=== PATIENT | male | born 1945 | race Caucasian/White ===

== ENCOUNTER 2016-12-11 09:46 | Emergency (ER) | payer MEDICARE, OTHER ==
[2016-12-11] MEDS ORDERED: ACETAMINOPHEN 325 MG TABLET PO ONE (10:16)
--- NOTE | 2016-12-11 10:20 | ER Document Report ---
HPI - HPI Patient complains to provider of: Shoulder joint pain Onset: Other - 3-1/2 weeks Onset/Duration: Persistent Quality of pain: Sharp Pain Level: 4 Context: Patient complains of right shoulder joint pain for the past 3-1/2 weeks. Patient states that 3.5 weeks ago he was taking out the trash downhill and the wheels of the trash can when out from under him causing him to fall landing on his right shoulder. Patient had pain to right shoulder joint area with raising his arm. Patient was never initially seen after injuring his shoulder. Patient states today there was ice on the floor and he slipped wet surface causing him to fall hitting his right shoulder on the counter of his kitchen. Patient is right-hand dominant. Patient denies any head injury or loss of consciousness. Patient states that today he did not fall on the floor although he just fell reinjuring his already tender shoulder. Associated Symptoms: Other - Shoulder joint pain Exacerbated by: Movement Relieved by: Remaining still Similar symptoms previously: No Recently seen / treated by doctor: No - ROS ROS below otherwise negative: Yes Systems Reviewed and Negative: Yes All other systems reviewed and negative - NEURO Neurology: DENIES: Headache - CARDIOVASCULAR Cardiovascular: DENIES: Chest pain - RESPIRATORY Respiratory: DENIES: Coughing - MUSCULOSKELETAL Musculoskeletal: REPORTS: Extremity pain - Shoulder joint - DERM Skin Color: Normal Skin Problems: None Past Medical History - General Information source: Patient - Social History Smoking Status: Never Smoker Frequency of alcohol use: Occasional Drug Abuse: None Occupation: retired Lives with: Spouse/Significant other Family History: Reviewed & Not Pertinent Patient has suicidal ideation: No Patient has homicidal ideation: No - Past Medical History Cardiac Medical History: Reports: Hx Hypercholesterolemia, Hx Hypertension Pulmonary Medical History: Reports: Hx Pneumonia - as child only Renal/ Medical History: Denies: Hx Peritoneal Dialysis GI Medical History: Musculoskeltal Medical History: Reports Hx Arthritis Traumatic Medical History: Reports: Hx Fractures - LT tib/fib, ORIF, 2006 Past Surgical History: Reports: Hx Cholecystectomy, Hx Herniorrhaphy - at age 65 years old RT inguinal, Hx Orthopedic Surgery - Right total hip replacement on , wound debridement on 03/29/2015 - Immunizations Hx Diphtheria, Pertussis, Tetanus Vaccination: Yes Vertical Provider Document - CONSTITUTIONAL Agree With Documented VS: Yes Exam Limitations: No Limitations General Appearance: WD/WN, No Apparent Distress - INFECTION CONTROL TRAVEL OUTSIDE OF THE [place] IN LAST 30 DAYS: No - HEENT HEENT: Atraumatic, Normocephalic - NECK Neck: Normal Inspection, Supple. negative: Lymphadenopathy-Left, Lymphadenopathy-Right - RESPIRATORY Respiratory: Breath Sounds Normal, No Respiratory Distress O2 Sat by Pulse Oximetry: 96 - CARDIOVASCULAR Cardiovascular: Regular Rate, Regular Rhythm, No Murmur Pulses: Normal: Radial - BACK Back: Normal Inspection - MUSCULOSKELETAL/EXTREMETIES Musculoskeletal/Extremeties: MAEW, Tender - Right shoulder joint tenderness to posterior aspect of humeral head, tenderness increases with extension or abduction of right shoulder, no dislocation or deformity., No Edema - NEURO Level of Consciousness: Awake, Alert, Appropriate Motor/Sensory: No Motor Deficit, No Sensory Deficit - DERM Integumentary: Warm, Dry, No Rash Course - Re-evaluation Re-evalutation: 12/11/16 11:06 The patient has been informed that they may have pre-hypertension or hypertension based on a blood pressure reading in the emergency department. I recommend that patient call the primary care provider listed on their discharge instructions or a physician of their choice by this week to arrange follow-up for further evaluation of possible pre-hypertension her hypertension. - Vital Signs Vital signs: Temp Pulse Resp BP Pulse Ox 97.8 F 103 H 20 141/77 H 96 12/11/16 09:49 12/11/16 09:49 12/11/16 09:49 12/11/16 09:49 12/11/16 09:49 - Diagnostic Test Radiology reviewed: Reports reviewed Procedures - Immobilization Right Shoulder Pre-Proc Neuro Vasc Exam: Normal Immobilizer type: Sling Performed by: RN Post-Proc Neuro Vasc Exam: Normal Alignment checked and good: Yes Discharge - Discharge Clinical Impression: Arthritis, Hx of essential hypertension Fall Qualifiers: Encounter type: initial encounter Qualified Code(s): W19.XXXA - Unspecified fall, initial encounter Sprain of right shoulder Qualifiers: Encounter type: initial encounter Shoulder sprain type: unspecified sprain Qualified Code(s): S43.401A - Unspecified sprain of right shoulder joint, initial encounter Condition: Stable Disposition: HOME, SELF-CARE Instructions: Shoulder Injury ([facility]), Temporary Sling ([facility]), Ice Packs ([facility]), Oral Narcotic Medication ([facility]) Additional Instructions: Return immediately for any new or worsening symptoms Followup with your primary care provider, call tomorrow to make a followup appointment Follow-up with orthopedic doctor for any continued pain or problems Going for the next 4 days and then removed. If still having pain see your orthopedic doctor for further evaluation. Your blood pressure was mildly elevated today, have your primary doctor recheck this next week. Prescriptions: Hydrocodone/Acetaminophen [[place] 5-325 Tablet] 1 each PO Q6 PRN #15 tablet PRN Reason: Forms: Elevated Blood Pressure Referrals: ALBER CARMONA MD [Primary Care Provider] - Follow up in 3-5 days MARLON ASKEW MD [ACTIVE STAFF] - Follow up as needed
--- NOTE | 2016-12-11 10:47 | RADIOLOGY REPORT (SQ) ---
EXAM DESCRIPTION: SHOULDER RIGHT 2 OR MORE VIEWS COMPLETED DATE/TIME: 12/11/2016 10:33 am REASON FOR STUDY: fall, shoulder injury COMPARISON: None. NUMBER OF VIEWS: Three views. TECHNIQUE: Internal rotation, external rotation, and Y view images acquired of the right shoulder. LIMITATIONS: None. FINDINGS: MINERALIZATION: Normal. BONES: No acute fracture or dislocation. No worrisome bone lesions. JOINTS: There is mild bony overgrowth of the acromioclavicular joint. VISUALIZED LUNGS AND RIBS: No pneumothorax. No rib fracture. SOFT TISSUES: No radiopaque foreign body. OTHER: No other significant finding. IMPRESSION: Acromioclavicular degenerative joint changes with no acute abnormality. TECHNICAL DOCUMENTATION: JOB ID: [id number] [employer]- All Rights Reserved
[2016-12-11 11:11] VITALS: BP 125/68
== END 2016-12-11 11:11 | disposition home or self-care (01) ==
LOC: ER 09:46
DX: M25.511 Pain in right shoulder (principal); M19.90 Unspecified osteoarthritis, unspecified site; E78.00 Pure hypercholesterolemia, unspecified; I10 Essential (primary) hypertension; Z90.49 Acquired absence of other specified parts of digestive tract; Z96.641 Presence of right artificial hip joint
CPT/HCPCS: 99283; 73030; A9270

== ENCOUNTER 2017-04-02 09:24 | Emergency (ER) | payer MEDICARE, OTHER ==
[2017-04-02] MEDS ORDERED: ACETAMINOPHEN 325 MG TABLET PO ONE (10:01)
[2017-04-02] MEDS ORDERED: INFLUENZA ADLT QUAD (36MOS+) 2017-18 VAC 0.5 ML SYR IM ONE (10:02)
--- NOTE | 2017-04-02 10:03 | ER Document Report ---
HPI - HPI Patient complains to provider of: Right ankle pain Onset: This morning Onset/Duration: Gradual Quality of pain: Sharp Pain Level: 4 Context: Patient states that he woke up with right ankle pain. Patient denies any injury. Patient states that he has no pain until he attempts to bear weight. Patient does report a distant history of gout. Associated Symptoms: Other - Right ankle pain. denies: Fever Exacerbated by: Standing, Movement, Walking Relieved by: Denies Similar symptoms previously: No Recently seen / treated by doctor: No - ROS ROS below otherwise negative: Yes Systems Reviewed and Negative: Yes All other systems reviewed and negative - CONSTITUTIONAL Constitutional: DENIES: Fever - NEURO Neurology: DENIES: Weakness - MUSCULOSKELETAL Musculoskeletal: REPORTS: Extremity pain, Swelling - DERM Skin Color: Normal Skin Problems: None Past Medical History - General Information source: Patient - Social History Smoking Status: Never Smoker Chew tobacco use (# tins/day): No Frequency of alcohol use: Occasional Drug Abuse: None Family History: Reviewed & Not Pertinent Patient has suicidal ideation: No Patient has homicidal ideation: No - Past Medical History Cardiac Medical History: Reports: Hx Hypercholesterolemia, Hx Hypertension Pulmonary Medical History: Reports: Hx Pneumonia - as child only Renal/ Medical History: Denies: Hx Peritoneal Dialysis GI Medical History: Musculoskeltal Medical History: Reports Hx Arthritis, Reports Hx Gout Traumatic Medical History: Reports: Hx Fractures - LT tib/fib, ORIF, 2006 Past Surgical History: Reports: Hx Cholecystectomy, Hx Herniorrhaphy - at age 65 years old RT inguinal, Hx Orthopedic Surgery - Right total hip replacement on , wound debridement on 03/29/2015 - Immunizations Hx Diphtheria, Pertussis, Tetanus Vaccination: Yes Vertical Provider Document - CONSTITUTIONAL Agree With Documented VS: Yes Exam Limitations: No Limitations General Appearance: WD/WN, No Apparent Distress - INFECTION CONTROL TRAVEL OUTSIDE OF THE [place] IN LAST 30 DAYS: No - HEENT HEENT: Atraumatic, Normocephalic - NECK Neck: Normal Inspection - RESPIRATORY Respiratory: No Respiratory Distress O2 Sat by Pulse Oximetry: 94 - CARDIOVASCULAR Pulses: Normal: Dorsalis pedis - MUSCULOSKELETAL/EXTREMETIES Musculoskeletal/Extremeties: MAEW, FROM, Tender - Right ankle tenderness over lateral malleolar area with 1+ edema, normal skin color overlying joint, no concern for septic joint - NEURO Level of Consciousness: Awake, Alert, Appropriate Motor/Sensory: No Motor Deficit - DERM Integumentary: Warm, Dry, No Rash Course - Re-evaluation Re-evalutation: 04/02/17 11:[address] Freedman regarding patient's x-ray and concern about possible subcutaneous foreign body to foot. Recommends obtaining a lateral view of the foot 04/02/17 Patient with what appears to be a subcutaneous foreign body to right foot. Patient denies any known history of injury or retained foreign object. Patient advised of x-ray finding and advised to follow-up with orthopedic doctor. Patient's location of tenderness does not coincide with location of subcutaneous foreign body. No overlying erythema or swelling overlying site of subcutaneous foreign body - Vital Signs Vital signs: Temp Pulse Resp BP Pulse Ox 98 F 112 H 18 126/96 H 94 04/02/17 09:28 04/02/17 09:28 04/02/17 09:28 04/02/17 09:28 04/02/17 09:28 - Diagnostic Test Radiology reviewed: Image reviewed, Reports reviewed Discharge - Discharge Clinical Impression: Foreign body in subcutaneous tissue Right ankle pain Qualifiers: Chronicity: acute Qualified Code(s): M25.571 - Pain in right ankle and joints of right foot Gout Qualifiers: Gout site: ankle Gout etiology: unspecified cause Chronicity: acute Laterality : right Qualified Code(s): M10.9 - Gout, unspecified Condition: Stable Disposition: HOME, SELF-CARE Instructions: Gout ([facility]), Gout Diet ([facility]), Steroid Medication, Ultram ([facility]) Additional Instructions: Return immediately for any new or worsening symptoms Followup with your primary care provider, call tomorrow to make a followup appointment Prescriptions: Prednisone [Deltasone 20 mg Tablet] 2 tab PO DAILY 5 Days tablet Tramadol HCl [Ultram 50 mg Tablet] 50 mg PO ASDIR PRN #20 tablet PRN Reason: Referrals: XAVIER CARMONA MD [Primary Care Provider] - Follow up as needed [facility] [Provider Group] - Follow up in 3-5 days
--- NOTE | 2017-04-02 11:17 | RADIOLOGY REPORT (SQ) ---
EXAM DESCRIPTION: ANKLE RIGHT COMPLETE COMPLETED DATE/TIME: 04/02/2017 10:42 am REASON FOR STUDY: r lat ankle pain COMPARISON: None. NUMBER OF VIEWS: Three views. TECHNIQUE: AP, lateral, and oblique radiographic images acquired of the right ankle. LIMITATIONS: None. FINDINGS: MINERALIZATION: Normal. BONES: No acute fracture or dislocation. No worrisome bone lesions. JOINTS: No effusions. SOFT TISSUES: Soft tissue swelling. OTHER: No other significant finding. IMPRESSION: Soft tissue swelling. No acute fracture. TECHNICAL DOCUMENTATION: JOB ID: [id number] [employer]- All Rights Reserved
--- NOTE | 2017-04-02 12:00 | RADIOLOGY REPORT (SQ) ---
EXAM DESCRIPTION: FOOT RIGHT 2 VIEWS COMPLETED DATE/TIME: 04/02/2017 11:46 am REASON FOR STUDY: lateral view of foot, ?FB COMPARISON: None. NUMBER OF VIEWS: Three views. TECHNIQUE: AP, lateral and oblique radiographic images acquired of the right foot. LIMITATIONS: None. FINDINGS: MINERALIZATION: Normal. BONES: No acute fracture or dislocation. No worrisome bone lesions. JOINTS: No effusions. SOFT TISSUES: There appears to be a very thin needle in the dorsal soft tissues overlying the neck of the 4th metatarsal. OTHER: No other significant finding. IMPRESSION: Dorsal foreign body. TECHNICAL DOCUMENTATION: JOB ID: [id number] [employer]- All Rights Reserved
[2017-04-02 12:07] VITALS: BP 142/99
== END 2017-04-02 12:07 | disposition home or self-care (01) ==
LOC: ER 09:24
DX: S91.341A Puncture wound with foreign body, right foot, initial encounter (principal); M10.9 Gout, unspecified; M25.571 Pain in right ankle and joints of right foot; X58.XXXA Exposure to other specified factors, initial encounter
CPT/HCPCS: 99283; 73610; 73620; 90686; G0008; A9270; 90471

== ENCOUNTER 2018-08-14 08:25 | Emergency (ER) | payer MEDICARE, OTHER ==
[2018-08-14 10:18] VITALS: BP 155/69
--- NOTE | 2018-08-14 10:18 | ER Document Report ---
ED General - General Chief Complaint: Low Back Pain Stated Complaint: LEG PAIN Time Seen by Provider: 08/14/18 09:04 Primary Care Provider: XAVIER CARMONA MD [Primary Care Provider] - Follow up in 3-5 days TRAVEL OUTSIDE OF THE [place] IN LAST 30 DAYS: No - HPI Patient complains to provider of: Calf pain Notes: Patient coming in for evaluation of calf pain. Patient complains of Pain exacerbated by sitting for prolonged periods of time and also ambulating. Patient denies any trauma to his legs. Patient does have a history of diabetes does take aspirin does take cholesterol medications. Patient states he did recently go to his PCP was started on Celebrex for his pain. Patient states compliant with his medication with no resolution of his symptoms. Patient denies any fever chills nausea vomiting diarrhea. Patient does report approximately 3 weeks ago an episode of going up and down stairs which causes legs to get very weak. Patient does states his feet do feel cold intermittently throughout the day. Patient states symptoms ongoing since May - Related Data Allergies/Adverse Reactions: No Known Allergies Allergy (Verified 08/14/18 08:25) Past Medical History - Social History Smoking Status: Never Smoker Family History: Reviewed & Not Pertinent Patient has suicidal ideation: No Patient has homicidal ideation: No - Past Medical History Cardiac Medical History: Reports: Hx Hypercholesterolemia, Hx Hypertension Pulmonary Medical History: Reports: Hx Pneumonia - as child only Renal/ Medical History: Denies: Hx Peritoneal Dialysis GI Medical History: Musculoskeletal Medical History: Reports Hx Arthritis, Reports Hx Gout Traumatic Medical History: Reports: Hx Fractures - LT tib/fib, ORIF, 2005 Past Surgical History: Reports: Hx Cholecystectomy, Hx Herniorrhaphy - at age 65 years old RT inguinal, Hx Orthopedic Surgery - Right total hip replacement on 02/25/2015, wound debridement on 03/29/2015 - Immunizations Hx Diphtheria, Pertussis, Tetanus Vaccination: Yes Review of Systems - Review of Systems Constitutional: No symptoms reported EENT: No symptoms reported Cardiovascular: No symptoms reported Respiratory: No symptoms reported Gastrointestinal: No symptoms reported Genitourinary: No symptoms reported Male Genitourinary: No symptoms reported Musculoskeletal: Other - Pain Skin: No symptoms reported Hematologic/Lymphatic: No symptoms reported Neurological/Psychological: No symptoms reported -: Yes All other systems reviewed and negative Physical Exam - Vital signs Vitals: Temp Pulse Resp BP Pulse Ox 98.3 F 101 H 18 175/83 H 100 08/14/18 08:32 08/14/18 08:32 08/14/18 08:32 08/14/18 08:32 08/14/18 08:32 Interpretation: Normal - General General appearance: Appears well, Alert - HEENT Head: Normocephalic, Atraumatic Eyes: Normal Pupils: PERRL - Respiratory Respiratory status: No respiratory distress Chest status: Nontender Breath sounds: Normal Chest palpation: Normal - Cardiovascular Rhythm: Regular Heart sounds: Normal auscultation Murmur: No - Abdominal Inspection: Normal Distension: No distension Bowel sounds: Normal Tenderness: Nontender Organomegaly: No organomegaly - Back Back: Normal, Nontender - Extremities General upper extremity: Normal inspection, Nontender, Normal color, Normal ROM, Normal temperature General lower extremity: Normal inspection, Nontender, Normal color, Normal ROM, Normal temperature, Normal weight bearing, Other - capillary refill is approximately 3-4 seconds bilateral greater toes. Palpable dorsalis pedis bilaterally ultrasound does show bilateral dorsalis pedis blood flow. No: Gwyn's sign - Neurological Neuro grossly intact: Yes Cognition: Normal Orientation: AAOx4 [place] Coma Scale Eye Opening: Spontaneous [place] Coma Scale Verbal: Oriented [place] Coma Scale Motor: Obeys Commands [place] Coma Scale Total: 15 Speech: Normal Motor strength normal: LUE, RUE, LLE, RLE Sensory: Normal - Psychological Associated symptoms: Normal affect, Normal mood - Skin Skin Temperature: Warm Skin Moisture: Dry Skin Color: Normal Course - Re-evaluation Re-evalutation: 08/14/18 16:09 Patient's HPI and physical examination is concerning for possible PVD. The explained to the patient that recommend start taking a baby aspirin to go ahead and take 2 baby aspirin a day but explained to the patient that I would highly recommend follow-up with his primary care physician for further evaluation and possibly an arterial duplex to be performed. Patient states understanding otherwise patient does have pulses distally no signs of any acute ischemia patient will be discharged to follow-up PCP - Vital Signs Vital signs: Temp Pulse Resp BP Pulse Ox 98.3 F 96 16 155/69 H 99 08/14/18 08:32 08/14/18 10:17 08/14/18 10:17 08/14/18 10:17 08/14/18 10:17 Discharge - Discharge Clinical Impression: Bilateral leg pain Condition: Good Disposition: HOME, SELF-CARE Instructions: Peripheral Vascular Disease ([facility]) Additional Instructions: Your evaluation today is very consistent with the onset of peripheral vascular disease. Your evaluation here in ER does show blood flow pulses Into your bilaterally. I would recommend 2 baby aspirins a day. I recommend taking Tylenol as directed on the bottle for your pain I do believe that she has peripheral vascular disease. I recommend that you follow-up with your primary care physician in the next 3-5 days I do believe that you any further testing done such as a arterial duplex. Your primary care physician can order this test to follow-up with the results with you. Referrals: XAVIER CARMONA MD [Primary Care Provider] - Follow up in 3-5 days
== END 2018-08-14 10:23 | disposition home or self-care (01) ==
LOC: ER 08:25
DX: M79.604 Pain in right leg (principal); M79.605 Pain in left leg; M54.5 Low back pain; E11.9 Type 2 diabetes mellitus without complications; R53.1 Weakness; I10 Essential (primary) hypertension
CPT/HCPCS: 99283

== ENCOUNTER 2019-03-29 13:34 | Emergency (ER) | payer MEDICARE, OTHER ==
--- NOTE | 2019-03-29 13:59 | ER Document Report ---
ED Medical Screen (RME) - General Chief Complaint: Foot Pain Stated Complaint: LEFT FOOT SWELLING Time Seen by Provider: 03/29/19 13:43 Primary Care Provider: XAVIER CARMONA MD [Primary Care Provider] - Follow up as needed Mode of Arrival: Ambulatory Information source: Patient Notes: This 74-year-old patient presents to the emergency department with complaints of left foot swollen with pain. Reports on March [address] to [place] and back his left foot started swelling he had pain to the area. He also reports through the week it got better. Then he recently went to [place] and came back and his foot swelled up again and became painful. He did contact his primary care provider via the phone and they sent in a prescription for colchicine saying he may be having a gout flareup. He reports he had gout 2 years ago. Denies other symptoms such as fever vomiting diarrhea. Denies history of cardiac disease. Left foot swollen pitting edema noted with good pedal pulse and cap refill I have greeted and performed a rapid initial assessment of this patient. A comprehensive ED assessment and evaluation of the patient, analysis of test results and completion of the medical decision making process will be conducted by additional ED providers. Dictation of this chart was performed using voice recognition software; therefore, there may be some unintended grammatical errors. TRAVEL OUTSIDE OF THE [place] IN LAST 30 DAYS: No - Related Data Allergies/Adverse Reactions: No Known Allergies Allergy (Verified 01/30/19 08:12) Past Medical History - Social History Chew tobacco use (# tins/day): No Frequency of alcohol use: None Drug Abuse: None - Past Medical History Cardiac Medical History: Reports: Hx Hypercholesterolemia, Hx Hypertension Pulmonary Medical History: Reports: Hx Pneumonia - as child only Renal/ Medical History: Denies: Hx Peritoneal Dialysis GI Medical History: Musculoskeltal Medical History: Reports Hx Arthritis, Reports Hx Gout Traumatic Medical History: Reports: Hx Fractures - LT tib/fib, ORIF, 2006 Past Surgical History: Reports: Hx Cholecystectomy, Hx Herniorrhaphy - at age 65 years old RT inguinal, Hx Orthopedic Surgery - Right total hip replacement on 02/25/2015, wound debridement on 03/29/2015 - Immunizations Hx Diphtheria, Pertussis, Tetanus Vaccination: Yes Physical Exam - Vital signs Vitals: Temp Pulse Resp BP Pulse Ox 98.1 F 95 16 173/95 H 95 10/02/19 13:42 03/29/19 13:42 03/29/19 13:42 03/29/19 13:42 03/29/19 13:42 Course - Vital Signs Vital signs: Temp Pulse Resp BP Pulse Ox 98.1 F 95 16 173/95 H 95 03/29/19 13:42 03/29/19 13:42 03/29/19 13:42 03/29/19 13:42 03/29/19 13:42 Doctor's Discharge - Discharge Referrals: XAVIER CARMONA MD [Primary Care Provider] - Follow up as needed
[2019-03-29 14:24] LABS: ABSOLUTE BASOPHILS # (AUTO) 0.1 10^3/uL (0.0-0.2); ABSOLUTE EOSINOPHILS # (AUTO) 0.2 10^3/uL (0.0-0.6); ABSOLUTE MONOCYTES (AUTO) 0.6 10^3/uL (0.1-1.4); ABSOLUTE NEUT (AUTO) 4.3 10^3/uL (1.7-8.2); BASOPHILS % (AUTO) 0.9 % (0-2); EOSINOPHILS % (AUTO) 2.5 % (0-6); HEMATOCRIT 39.2 % (37.9-51.0); HEMOGLOBIN 13.2 g/dL (13.5-17.0); LYMPHOCYTES % (AUTO) 28.1 % (13-45); MEAN CORPUSCULAR HGB CONC 33.8 g/dL (32.0-36.0); MEAN CORPUSCULAR VOLUME 92 fl (80-97); PLATELET COUNT 338 10^3/uL (150-450); RED BLOOD COUNT 4.26 10^6/uL (4.35-5.55); RED CELL DISTRIBUTION WIDTH 13.1 % (11.5-14.0); SEGMENTED NEUTROPHILS % (AUTO) 60.5 % (42-78); TOTAL CELLS COUNTED % (AUTO) 100 %; WHITE BLOOD COUNT 7.1 10^3/uL (4.0-10.5)
--- NOTE | 2019-03-29 14:26 | ER Document Report ---
ED Extremity Problem, Lower - General Chief Complaint: Foot Pain Stated Complaint: LEFT FOOT SWELLING Time Seen by Provider: 03/29/19 13:43 Primary Care Provider: XAVIER CARMONA MD [Primary Care Provider] - Follow up as needed Mode of Arrival: Ambulatory Notes: Patient is a 74-year-old male presents to the emergency department with a chief complaint of left foot swelling. Patient reports he was driving back from [place] completing a [address] on March 19 when he noticed some foot swelling and redness on the left side. Patient reports it initially got a little bit better. Patient reports he did drive to [place] over the weekend and on Wednesday the swelling and pain to his toes returned. Patient denies fever. Patient reports the last time he had a pain like this he was diagnosed with gout. He reports he did call his primary care physician who called him in a prescription for colchicine. Patient reports he has been on this for 2 days and it is not helping. Patient reports that most of the pain is located in his toes. Patient reports when he elevates his feet this completely takes away the pain and decreases the swelling. Patient reports he noticed that the pain is worse at night when he is laying flat on his bed and stretching out. Patient denies a history of blood clot. Patient denies calf pain, chest pain or shortness of breath. Patient reports he is not a diabetic. TRAVEL OUTSIDE OF THE [place] IN LAST 30 DAYS: No - Related Data Allergies/Adverse Reactions: No Known Allergies Allergy (Verified 01/30/19 08:12) Past Medical History - General Information source: Patient - Social History Smoking Status: Never Smoker Chew tobacco use (# tins/day): No Frequency of alcohol use: None Drug Abuse: None Lives with: Family Family History: Reviewed & Not Pertinent Patient has suicidal ideation: No Patient has homicidal ideation: No - Past Medical History Cardiac Medical History: Reports: Hx Hypercholesterolemia, Hx Hypertension Pulmonary Medical History: Reports: Hx Pneumonia - as child only EENT Medical History: Reports: None Neurological Medical History: Reports: None Endocrine Medical History: Reports: None Renal/ Medical History: Reports: None. Denies: Hx Peritoneal Dialysis Malignancy Medical History: Reports None GI Medical History: Reports: None Musculoskeletal Medical History: Reports Hx Arthritis, Reports Hx Gout Skin Medical History: Reports None Psychiatric Medical History: Reports: None Traumatic Medical History: Reports: Hx Fractures - LT tib/fib, ORIF, 2006 Infectious Medical History: Reports: None Past Surgical History: Reports: Hx Cholecystectomy, Hx Herniorrhaphy - at age 65 years old RT inguinal, Hx Orthopedic Surgery - Right total hip replacement on 02/25/2015, wound debridement on 03/29/2015 - Immunizations Hx Diphtheria, Pertussis, Tetanus Vaccination: Yes Review of Systems - Review of Systems Constitutional: No symptoms reported EENT: No symptoms reported Cardiovascular: No symptoms reported Respiratory: No symptoms reported Gastrointestinal: No symptoms reported Genitourinary: No symptoms reported Male Genitourinary: No symptoms reported Musculoskeletal: No symptoms reported Skin: See HPI Hematologic/Lymphatic: No symptoms reported Neurological/Psychological: No symptoms reported Physical Exam - Vital signs Vitals: Temp Pulse Resp BP Pulse Ox 98.1 F 95 16 173/95 H 95 03/29/19 13:42 03/29/19 13:42 03/29/19 13:42 03/29/19 13:42 03/29/19 13:42 Interpretation: Hypertensive - Notes Notes: GENERAL: Well-appearing, well-nourished and in no acute distress. HEAD: Atraumatic, normocephalic. EYES: Pupils equal round and reactive to light, extraocular movements intact, sclera anicteric, conjunctiva are normal. ENT: Nares patent, oropharynx clear without exudates. Moist mucous membranes. NECK: Normal range of motion, supple without lymphadenopathy or JVD. LUNGS: Breath sounds clear to auscultation bilaterally and equal. No wheezes rales or rhonchi. HEART: Regular rate and rhythm without murmurs, rubs or gallops. ABDOMEN: Soft, nontender, normoactive bowel sounds. No guarding, no rebound. No masses appreciated. BACK: No cervical, thoracic, lumbar midline tenderness. No saddle anesthesia, normal distal neurovascular exam. GENITOURINARY: Deferred. EXTREMITIES: Normal range of motion, + 1 pitting edema noted to the left foot from ankle down. Poor foot care present. Scattered crusting of skin, mild erythema, healing sore to the dorsal aspect of the 4th toe (no active bleeding - pt. reports he stubbed his toe), + 2 dorsalis pedis pulse. NEUROLOGICAL: Cranial nerves II through XII grossly intact. Normal speech, normal gait. PSYCH: Normal mood, normal affect. SKIN: Warm, Dry, normal turgor, no rashes or lesions noted. Course - Vital Signs Vital signs: Temp Pulse Resp BP Pulse Ox 98.1 F 95 16 173/95 H 95 03/29/19 13:42 03/29/19 13:42 03/29/19 13:42 03/29/19 13:42 03/29/19 13:42 - Laboratory Result Diagrams: 03/29/19 14:14 03/29/19 14:14 Laboratory results interpreted by me: 03/29/19 03/29/19 14:14 14:14 RBC 4.26 L Hgb 13.2 L Alkaline Phosphatase 159 H Laboratory 03/29/19 03/29/19 14:14 14:14 WBC 7.1 RBC 4.26 L Hgb 13.2 L Hct 39.2 MCV 92 MCH 31.0 MCHC 33.8 RDW 13.1 Plt Count 338 Lymph % (Auto) 28.1 [place] % (Auto) 8.0 Eos % (Auto) 2.5 Baso % (Auto) 0.9 Absolute Neuts (auto) 4.3 Absolute Lymphs (auto) 2.0 Absolute Monos (auto) 0.6 Absolute Eos (auto) 0.2 Absolute Basos (auto) 0.1 Seg Neutrophils % 60.5 Sodium 138.4 Potassium 4.2 Chloride 100 Carbon Dioxide 29 Anion Gap 9 BUN 14 Creatinine 0.74 Est GFR ( Amer) > 60 Est GFR (MDRD) Non-Af > 60 Glucose 94 Uric Acid 6.2 Calcium 10.1 Total Bilirubin 0.6 Direct Bilirubin 0.2 Neonat Total Bilirubin Not Reportable Neonat Direct Bilirubin Not Reportable Neonat Indirect Bili Not Reportable AST 52 ALT 45 Alkaline Phosphatase 159 H Total Protein 7.4 Albumin 4.5 Patient's blood work does not show a leukocytosis, anemia, alteration of electrolytes or liver function. Patient does have a normal uric acid of 6.2. - Diagnostic Test Radiology reviewed: Reports reviewed Radiology results interpreted by me: 03/29/19 15:02 Venous Doppler Study 03/29/19 13:57 IMPRESSION: NO EVIDENCE OF DVT OR SVT IN THE LEFT LEG. Discharge - Discharge Clinical Impression: Swelling of left foot Condition: Stable Disposition: HOME, SELF-CARE Additional Instructions: Today you are seen in the emergency department for left foot pain and swelling. Your lab work was unremarkable and your uric acid was normal. We did obtain a Doppler of your left lower extremity to rule out blood clot. This was also negative. It did show adequate blood flow to the leg. I am unsure what is c ausing the swelling to the left foot. At this time there does not appear to be a surrounding cellulitis or indication for an oral antibiotic. I would continue taking the colchicine as this could be helping with your discomfort. Follow-up with your primary care physician and return if the symptoms worsen such as increased swelling, redness, fever, discoloration of the foot or any new or worsening symptoms. Over the next few days I would elevate the left foot as you have reported this helps with the discomfort and completely takes away the pain. Referrals: XAVIER CARMONA MD [Primary Care Provider] - Follow up as needed
[2019-03-29 14:43] LABS: ALBUMIN 4.5 g/dL (3.5-5.0); ALKALINE PHOSPHATASE 159 U/L (38-126); ANION GAP 9 (5-19); ASPARTATE AMINO TRANSFERASE 52 U/L (17-59); BILIRUBIN,DIRECT 0.2 mg/dL (0.0-0.4); BILIRUBIN,TOTAL 0.6 mg/dL (0.2-1.3); BLOOD UREA NITROGEN 14 mg/dL (7-20); CALCIUM 10.1 mg/dL (8.4-10.2); CARBON DIOXIDE 29 mmol/L (22-30); CHLORIDE 100 mmol/L (98-107); GLUCOSE 94 mg/dL (75-110); POTASSIUM 4.2 mmol/L (3.6-5.0); TOTAL PROTEIN 7.4 g/dL (6.3-8.2); URIC ACID 6.2 mg/dL (3.5-8.5)
--- NOTE | 2019-03-29 14:55 | RADIOLOGY REPORT (SQ) ---
EXAM DESCRIPTION: VENOUS UNILATERAL LOWER COMPLETED DATE/TIME: 03/29/2019 2:47 pm REASON FOR STUDY: pain swelling left LL and Foot COMPARISON: None. TECHNIQUE: Dynamic and static cordova scale and color images acquired of the left leg venous system. Se lected spectral images acquired with additional compression and augmentation maneuvers. The contralat eral common femoral vein and saphenofemoral junction were also imaged. Images stored on PACS. LIMITATIONS: None. FINDINGS: COMMON FEMORAL: Normal phasicity, compression and augmentation. No visualized echogenic ma terial on cordova scale. No defects on color images. FEMORAL: Normal compression and augmentation. No visualized echogenic material on cordova scale. No defe cts on color images. POPLITEAL: Normal compression, augmentation. No visualized echogenic material on cordova scale. No defec ts on color images. CALF VESSELS: Normal compression, augmentation. No visualized echogenic material on cordova scale. No de fects on color images. GSV and SSV: Normal compression, augmentation. No visualized echogenic material on cordova scale. No def ects on color images. ANY DEEP VENOUS INSUFFICIENCY: Not evaluated. ANY EVIDENCE OF POPLITEAL CYST: No. OTHER: No other significant finding. CONTRALATERAL COMMON FEMORAL VEIN AND SAPHENOFEMORAL JUNCTION: Normal phasicity, compression and augmentation. No visualized echogenic material on cordova scale. No de fects on color images. IMPRESSION: NO EVIDENCE OF DVT OR SVT IN THE LEFT LEG. TECHNICAL DOCUMENTATION: JOB ID: [id number] [employer]- All Rights Reserved Reading location - IP/workstation name: [email or web address]
[2019-03-29 15:52] VITALS: BP 125/69
== END 2019-03-29 15:52 | disposition home or self-care (01) ==
LOC: ER 13:34
DX: M79.89 Other specified soft tissue disorders (principal); R60.0 Localized edema; L53.9 Erythematous condition, unspecified; L98.9 Disorder of the skin and subcutaneous tissue, unspecified; I10 Essential (primary) hypertension
CPT/HCPCS: 36415; 80053; 84550; 85025; 93971; 99284

== ENCOUNTER 2019-08-04 08:51 | Emergency (ER) | payer MEDICARE, OTHER ==
--- NOTE | 2019-08-04 09:43 | ER Document Report ---
HPI - HPI Time Seen by Provider: 08/04/19 09:28 Pain Level: Denies Notes: Patient is a 74-year-old male with a history of hypercholesterolemia and hypertension who presents complaining of having some nasal congestion without discharge and a dry cough over the past 4 days. Patient states that he does feel a little bit wheezy at nighttime. He otherwise is feeling well. He has been able to eat and drink without difficulty. He is urinating normally and having normal bowel movements. Denies drug allergies. No history of CAD, diabetes, CHF, PE, DVT. He is able to ambulate without any dyspnea on exertion. Denies any headache, fever, neck pain, sore throat, chest pain, palpitations, syncope, shortness of breath, dyspnea, abdominal pain, nausea/vomiting/diarrhea, urinary retention, dysuria, hematuria, back pain, or rash. - ROS Systems Reviewed and Negative: Yes All other systems reviewed and negative - RESPIRATORY Respiratory: REPORTS: Coughing - REPRODUCTIVE Reproductive: DENIES: : Past Medical History - Social History Smoking Status: Never Smoker Chew tobacco use (# tins/day): No Frequency of alcohol use: None Drug Abuse: None Family History: Reviewed & Not Pertinent Patient has suicidal ideation: No Patient has homicidal ideation: No - Past Medical History Cardiac Medical History: Reports: Hx Hypercholesterolemia, Hx Hypertension Pulmonary Medical History: Reports: Hx Pneumonia - as child only Renal/ Medical History: Denies: Hx Peritoneal Dialysis GI Medical History: Musculoskeletal Medical History: Reports Hx Arthritis, Reports Hx Gout Traumatic Medical History: Reports: Hx Fractures - LT tib/fib, ORIF, 2006 Past Surgical History: Reports: Hx Cholecystectomy, Hx Herniorrhaphy - at age 65 years old RT inguinal, Hx Orthopedic Surgery - Right total hip replacement on 02/25/2015, wound debridement on 03/29/2015 - Immunizations Hx Diphtheria, Pertussis, Tetanus Vaccination: Yes Vertical Provider Document - CONSTITUTIONAL Agree With Documented VS: Yes Notes: PHYSICAL EXAMINATION: GENERAL: Well-appearing, well-nourished and in no acute distress. A&Ox4. Answers questions appropriately. Moves comfortably w/o notable distress HEAD: Atraumatic, normocephalic. EYES: Pupils equal round and reactive to light, extraocular movements intact, sclera anicteric, conjunctiva are normal. ENT: Nares patent and without discharge. oropharynx no erythema without exudates. No tonsilar hypertrophy without erythema or exudate. No palatine shift. Uvula midline. No tongue protrusion. No drooling, hoarseness, or airway compromise. Moist mucous membranes. No sinus tenderness. NECK: Normal range of motion, supple without lymphadenopathy. No rigidity/meningismus. LUNGS: Breath sounds clear to auscultation bilaterally and equal. No wheezes rales or rhonchi. No retractions HEART: Regular rate and rhythm without murmurs, rubs, gallops. ABDOMEN: Soft, nontender, nondistended abdomen. No guarding, no rebound. Normal bowel sounds present. No CVA tenderness bilaterally. Ext: No edema. Gwyn neg b/l. NEUROLOGICAL: Normal speech, normal gait. PSYCH: Normal mood, normal affect. SKIN: Warm, Dry, normal turgor, no rashes or lesions noted. - INFECTION CONTROL TRAVEL OUTSIDE OF THE [place] IN LAST 30 DAYS: No Course - Re-evaluation Re-evalutation: 08/04/19 10:21 Patient is an afebrile, well-hydrated, 74-year-old male who presents to the emergency department with suspected left basilar pneumonia. Vitals are acceptable without significant tachycardia, tachypnea, or hypoxia. PE is otherwise unremarkable. See CXR. He is nontoxic-appearing and is tolerating p.o. without difficulty. Lungs are grossly clear to auscultation bilaterally. No further labs or imaging warranted at this time. Low suspicion for any meningitis, sepsis, peritonsillar/pharyngeal abscess, respiratory compromise, or other emergent systemic condition at this time. Patient is aware this condition can change from initial presentation and he needs to monitor symptoms closely. Rx for levaquin. Conservative measures otherwise for symptoms. Recheck with your PCM in 2-3 days. Return to the ED with any worsening/concerning symptoms otherwise as reviewed in discharge. Patient is in agreement. - Vital Signs Vital signs: Temp Pulse Resp BP Pulse Ox 97.6 F 80 20 148/70 H 99 08/04/19 08:57 08/04/19 08:57 08/04/19 08:57 08/04/19 08:57 08/04/19 09:35 Discharge - Discharge Clinical Impression: Left lower lobe pneumonia Qualifiers: Pneumonia type: due to unspecified organism Qualified Code(s): J18.9 - Pneumonia, unspecified organism Condition: Stable Disposition: HOME, SELF-CARE Additional Instructions: Maintain adequate fluid intake tylenol/ibuprofen as needed alternating every 3 hours for fever/body ache over the counter cold medication as needed for symptoms Humidified air may help Wash your hands regularly Wear a mask when coughing F/u: with your PCM in 2-3 days for a recheck Return to the ED with any fever, altered mental status/behavior, chest pain, palpitations, syncope, headache, neck pain/stiffness, shortness of breath, chest pains, wheezing, drooling, trouble swallowing/breathing, abdominal pain, n/v/d, rash, or worsening/concerning symptoms otherwise. Prescriptions: Levofloxacin [Levaquin 750 mg Tablet] 750 mg PO DAILY #5 tablet Albuterol Sulfate [Proair HFA Inhalation Aerosol 8.5 gm MDI] 2 puff IH Q4H PRN #1 mdi PRN Reason: Forms: Elevated Blood Pressure Referrals: XAVIER CARMONA MD [Primary Care Provider] - Follow up as needed
--- NOTE | 2019-08-04 10:16 | RADIOLOGY REPORT (SQ) ---
EXAM DESCRIPTION: CHEST 2 VIEWS COMPLETED DATE/TIME: 08/04/2019 9:54 am REASON FOR STUDY: cough COMPARISON: 04/08/2015 EXAM PARAMETERS: NUMBER OF VIEWS: two views TECHNIQUE: Digital Frontal and Lateral radiographic views of the chest acquired. RADIATION DOSE: NA LIMITATIONS: none FINDINGS: LUNGS AND PLEURA: Mild linear left basilar opacity. No pleural effusion or pneumothorax. MEDIASTINUM AND HILAR STRUCTURES: No masses or contour abnormalities. HEART AND VASCULAR STRUCTURES: Heart normal size. No evidence for failure. BONES: No acute findings. HARDWARE: Cholecystectomy clips. OTHER: No other significant finding. IMPRESSION: Mild linear left basilar opacities possibly atelectasis/ scarring or infection. TECHNICAL DOCUMENTATION: JOB ID: [id number] [employer]- All Rights Reserved Reading location - IP/workstation name: [email or web address]
[2019-08-04 10:33] VITALS: BP 132/89
== END 2019-08-04 10:30 | disposition home or self-care (01) ==
LOC: ER 08:51
DX: J18.9 Pneumonia, unspecified organism (principal); R09.81 Nasal congestion; E78.00 Pure hypercholesterolemia, unspecified; I10 Essential (primary) hypertension; Z90.49 Acquired absence of other specified parts of digestive tract; Z96.641 Presence of right artificial hip joint
CPT/HCPCS: 71046; 99283

== ENCOUNTER 2019-09-11 16:04 | Emergency (ER) | payer MEDICARE, OTHER ==
[2019-09-11] MEDS ORDERED: NORMAL SALINE 500 ML IV ONE (17:39)
[2019-09-11 17:45] LABS: ABSOLUTE BASOPHILS # (AUTO) 0.1 10^3/uL (0.0-0.2); ABSOLUTE EOSINOPHILS # (AUTO) 0.1 10^3/uL (0.0-0.6); ABSOLUTE LYMPHOCYTES (AUTO) 1.7 10^3/uL (0.5-4.7); ABSOLUTE MONOCYTES (AUTO) 0.7 10^3/uL (0.1-1.4); ABSOLUTE NEUT (AUTO) 7.3 10^3/uL (1.7-8.2); BASOPHILS % (AUTO) 0.6 % (0-2); EOSINOPHILS % (AUTO) 1.4 % (0-6); HEMATOCRIT 38.5 % (37.9-51.0); HEMOGLOBIN 13.2 g/dL (13.5-17.0); LYMPHOCYTES % (AUTO) 17.3 % (13-45); MEAN CORPUSCULAR HEMOGLOBIN 31.4 pg (27.0-33.4); MEAN CORPUSCULAR HGB CONC 34.1 g/dL (32.0-36.0); MEAN CORPUSCULAR VOLUME 92 fl (80-97); MONOCYTES % (AUTO) 6.7 % (3-13); PLATELET COUNT 312 10^3/uL (150-450); RED BLOOD COUNT 4.19 10^6/uL (4.35-5.55); RED CELL DISTRIBUTION WIDTH 12.3 % (11.5-14.0); TOTAL CELLS COUNTED % (AUTO) 100 %; WHITE BLOOD COUNT 9.9 10^3/uL (4.0-10.5)
--- NOTE | 2019-09-11 17:45 | ER Document Report ---
Entered by SKYLER ARREAGA SCRIBE 09/11/19 [id number] Acting as scribe for:KATHLEEN BUCKLEY DO ED General - General Chief Complaint: Dizziness Stated Complaint: LIGHTED HEADED Time Seen by Provider: 09/11/19 17:03 Primary Care Provider: XAVIER CARMONA MD [Primary Care Provider] - Follow up as needed Information source: Patient Notes: This 74-year-old male presents with son to the emergency department complaining of dizziness spells for the past 1-2 months. Patient states that he had a spell today and his son checked his blood pressure. Patient reports that his blood pressure was 70/40 and his heart rate was 120 at that time. Patient mentions that he is unsure but thinks he had a loss of consciousness on his drive home from [place] today. Son states that it is not normal for patient to fall asleep at the wheel or lose consciousness while driving. Patient explains that he feels a "hot feeling on top of head" that lasts for 1-2 seconds and goes away. Patient states that he has had a CT work up for this symptom previously. TRAVEL OUTSIDE OF THE [place] IN LAST 30 DAYS: No - Related Data Allergies/Adverse Reactions: No Known Allergies Allergy (Verified 09/11/19 17:15) Past Medical History - General Information source: Patient - Social History Smoking Status: Never Smoker Cigarette use (# per day): No Chew tobacco use (# tins/day): No Family History: Reviewed & Not Pertinent - Past Medical History Cardiac Medical History: Reports: Hx Hypercholesterolemia, Hx Hypertension Pulmonary Medical History: Reports: Hx Pneumonia GI Medical History: Musculoskeletal Medical History: Reports Hx Arthritis, Reports Hx Gout Traumatic Medical History: Reports: Hx Fractures - LT tib/fib, ORIF, 2006 Past Surgical History: Reports: Hx Cholecystectomy, Hx Herniorrhaphy - at age 65 years old RT inguinal, Hx Orthopedic Surgery - Right total hip replacement on 02/25/2015, wound debridement on 03/29/2015 - Immunizations Hx Diphtheria, Pertussis, Tetanus Vaccination: Yes Review of Systems - Review of Systems Constitutional: No symptoms reported EENT: No symptoms reported Cardiovascular: See HPI, Dizziness, Lightheaded Respiratory: No symptoms reported Gastrointestinal: No symptoms reported Genitourinary: No symptoms reported Male Genitourinary: No symptoms reported Musculoskeletal: No symptoms reported Skin: No symptoms reported Hematologic/Lymphatic: No symptoms reported Neurological/Psychological: See HPI, Lost consciousness -: Yes All other systems reviewed and negative Physical Exam - Vital signs Vitals: Resp 23 H 09/11/19 16:28 - Notes Notes: Physical Exam: General: Alert, appears well. HEENT: Normocephalic. Atraumatic. PERRL. Extraocular movements intact. Oropharynx clear. Neck: Supple. Non-tender. Respiratory: No respiratory distress. Clear and equal breath sounds bilaterally. Cardiovascular: Mildly tachycardic. Abdominal: Non-tender. No distension. Normal Bowel Sounds. Obese. Back: No gross abnormalities. Extremities: Moves all four extremities. Upper extremities: Normal inspection. Normal ROM. Lower extremities: Normal inspection. No edema. Normal ROM. Neurological: Normal cognition. AAOx4. Normal speech. Psychological: Normal affect. Normal Mood. Skin: Warm. Dry. Normal color. Course - Vital Signs Vital signs: Temp Pulse Resp BP Pulse Ox 93 20 126/80 H 95 09/11/19 18:51 09/11/19 17:01 09/11/19 18:51 09/11/19 17:01 - Laboratory Result Diagrams: 09/11/19 17:10 09/11/19 17:10 Laboratory results interpreted by me: 09/11/19 09/11/19 09/11/19 17:10 17:10 18:45 RBC 4.19 L Hgb 13.2 L Carbon Dioxide 31 H BUN 27 H Creatinine 1.37 H Est GFR (MDRD) Non-Af 51 L Glucose 112 H Alkaline Phosphatase 135 H Creatine Kinase 175 H Urine Protein 100 H Urine Blood SMALL H Discharge - Discharge Clinical Impression: Acute kidney injury, Near syncope Hypertension Qualifiers: Hypertension type: unspecified Qualified Code(s): I10 - Essential (primary) hypertension Condition: Good Disposition: HOME, SELF-CARE Instructions: Dehydration ([facility]), Dizziness ([facility]), Weakness ([facility]) Additional Instructions: Call the tow operator in the morning for follow up. Your kidney function was off just a bit, this should be rechecked by your family doctor. Please return here for chest pain, shortness of breath or other problems or concerns. Referrals: XAVIER CARMONA MD [Primary Care Provider] - Follow up as needed I personally performed the services described in the documentation, reviewed and edited the documentation which was dictated to the scribe in my presence, and it accurately records my words and actions.
[2019-09-11 17:51] LABS: ALKALINE PHOSPHATASE 135 U/L (38-126); ANION GAP 9 (5-19); ASPARTATE AMINO TRANSFERASE 39 U/L (17-59); BILIRUBIN,DIRECT 0.3 mg/dL (0.0-0.4); BILIRUBIN,TOTAL 0.3 mg/dL (0.2-1.3); BLOOD UREA NITROGEN 27 mg/dL (7-20); CALCIUM 9.6 mg/dL (8.4-10.2); CARBON DIOXIDE 31 mmol/L (22-30); CHLORIDE 99 mmol/L (98-107); CREATINE KINASE 175 U/L (55-170); GLUCOSE 112 mg/dL (75-110); TOTAL PROTEIN 7.2 g/dL (6.3-8.2)
--- NOTE | 2019-09-11 18:18 | RADIOLOGY REPORT (SQ) ---
EXAM DESCRIPTION: CHEST SINGLE VIEW COMPLETED DATE/TIME: 09/11/2019 6:02 pm REASON FOR STUDY: htn COMPARISON: 08/04/2019 EXAM PARAMETERS: NUMBER OF VIEWS: One view. TECHNIQUE: Single frontal radiographic view of the chest acquired. RADIATION DOSE: NA LIMITATIONS: None. FINDINGS: LUNGS AND PLEURA: Mild subsegmental atelectasis in the left base. MEDIASTINUM AND HILAR STRUCTURES: No masses. Contour normal. HEART AND VASCULAR STRUCTURES: Heart normal in size. Normal vasculature. BONES: No acute findings. HARDWARE: None in the chest. OTHER: No other significant finding. IMPRESSION: NO ACUTE RADIOGRAPHIC FINDING IN THE CHEST. TECHNICAL DOCUMENTATION: JOB ID: [id number] [employer]- All Rights Reserved Reading location - IP/workstation name: [email or web address]
[2019-09-11 19:21] LABS: APPEARANCE,URINE SLIGHTLY-CLOUDY; BILIRUBIN,URINE NEGATIVE (NEGATIVE); COLOR,URINE YELLOW; GLUCOSE, URINE NEGATIVE (NEGATIVE); KETONES,URINE NEGATIVE (NEGATIVE); LEUKOCYTE ESTERASE,URINE NEGATIVE (NEGATIVE); NITRITE,URINE NEGATIVE (NEGATIVE); PROTEIN,URINE 100 mg/dL (NEGATIVE); URINE SPECIFIC GRAVITY 1.015; UROBILINOGEN,URINE NEGATIVE mg/dL (<2.0)
[2019-09-11 21:28] VITALS: BP 141/82
--- NOTE | 2019-09-11 21:47 | EKG REPORT ---
SEVERITY:- ABNORMAL ECG - SINUS TACHYCARDIA LVH WITH SECONDARY REPOLARIZATION ABNORMALITY CONSIDER ANTERIOR INFARCT : Confirmed by: Cheri Bush MD 11-Sep-2019 21:46:58
== END 2019-09-11 21:26 | disposition home or self-care (01) ==
LOC: ER 16:04
DX: N17.9 Acute kidney failure, unspecified (principal); R42 Dizziness and giddiness; I10 Essential (primary) hypertension
CPT/HCPCS: 93005; 99284; 96360; 96361; 36415; 82550; 83735; 85025; 80053; 81001; 84484; 71045; 93010; J7040

== ENCOUNTER 2019-11-27 08:01 | Emergency (ER) | payer MEDICARE, OTHER ==
--- NOTE | 2019-11-27 08:45 | ER Document Report ---
ED Extremity Problem, Lower - General Chief Complaint: Foot Pain Stated Complaint: LEG PAIN Time Seen by Provider: 11/27/19 08:20 Primary Care Provider: XAVIER CARMONA MD [Primary Care Provider] - Follow up as needed Mode of Arrival: Ambulatory Information source: Patient Notes: 74-year-old male past medical history significant for gout, hypertension, hyperlipidemia presents to the emergency room complaining of left ankle erythema, swelling, and pain for the past 3 days. States approximately 1 week ago he cut the ball of his foot while walking in the yard. But did not notice the redness and swelling until 3 days ago. He denies any fevers. States he has a history of gout tried taking colchicine yesterday without relief. Also took Motrin last night without relief. Previous fracture with hardware in the left ankle. Denies any use of blood thinners. TRAVEL OUTSIDE OF THE [place] IN LAST 30 DAYS: No - Related Data Allergies/Adverse Reactions: No Known Allergies Allergy (Verified 09/11/19 17:15) Home Medications: Atorvastatin, Metoprolol, HCTZ, Losartan, Proair, Colchicine Past Medical History - General Information source: Patient - Social History Smoking Status: Never Smoker Frequency of alcohol use: Occasional Drug Abuse: None Lives with: Family Family History: Reviewed & Not Pertinent Patient has homicidal ideation: No - Past Medical History Cardiac Medical History: Reports: Hx Hypercholesterolemia, Hx Hypertension Pulmonary Medical History: Reports: Hx Pneumonia Renal/ Medical History: Denies: Hx Peritoneal Dialysis GI Medical History: Musculoskeletal Medical History: Reports Hx Arthritis, Reports Hx Gout Traumatic Medical History: Reports: Hx Fractures - LT tib/fib, ORIF, 2005 Past Surgical History: Reports: Hx Cholecystectomy, Hx Herniorrhaphy - at age 65 years old RT inguinal, Hx Orthopedic Surgery - Right total hip replacement on 02/25/2015, wound debridement on 03/29/2015 - Immunizations Hx Diphtheria, Pertussis, Tetanus Vaccination: Yes Review of Systems - Review of Systems Constitutional: No symptoms reported Cardiovascular: No symptoms reported Respiratory: No symptoms reported Musculoskeletal: Joint pain Skin: Other - Erythema, swelling Neurological/Psychological: No symptoms reported -: Yes All other systems reviewed and negative Physical Exam - Vital signs Vitals: Temp Pulse Resp BP Pulse Ox 98.5 F 91 16 126/67 H 98 11/27/19 08:07 11/27/19 08:07 11/27/19 08:07 11/27/19 08:07 11/27/19 08:07 - General General appearance: Appears well, Alert In distress: Mild - Respiratory Respiratory status: No respiratory distress Chest status: Nontender Breath sounds: Normal Chest palpation: Normal - Cardiovascular Rhythm: Regular Murmur: No Systolic murmur grade 1-6: 2 Friction rub: No Gallop: None auscultated Normal capillary refill: Yes - Extremities General upper extremity: Normal inspection General lower extremity: Tender - Left lower extremity from mid calf to mid left foot with erythema, warm and tender to palpation. There is no active discharge or draining noted. Ankle: Tender, Other - Left medial malleolus with erythema, swelling, warm and tender to palpation. No active discharge or draining noted.. No: Limited ROM, Unable to bear weight Foot: Abrasion - There are 2 well-healing abrasions noted to the ball of the left foot. There is no erythema, not tender or warm to touch. No discharge or draining noted. - Neurological Neuro grossly intact: Yes Cognition: Normal Orientation: AAOx4 Lueders Coma Scale Eye Opening: Spontaneous Jo-Ann Coma Scale Verbal: Oriented Jo-Ann Coma Scale Motor: Obeys Commands Jo-Ann Coma Scale Total: 15 Speech: Normal Motor strength normal: LUE, RUE, LLE, RLE Sensory: Normal Notes: Positive left pedal pulse. Capillary refill less than 3 seconds. - Skin Skin Temperature: Warm Skin Moisture: Dry Skin Color: Erythema Skin irregularity: Erythema Location of irregularity: Extremities Notes: Left lower extremity from mid calf to mid dorsal of left foot with erythema, warm and tender to palpation. There is swelling and erythema over the left medial malleolus. Full range of motion without difficulty. Course - Re-evaluation Re-evalutation: 11/27/19 10:47 Patient is afebrile, nontoxic-appearing, decreased pain. Reviewed lab and x-ray results with patient. Marked left lower leg area of cellulitis. Patient was counseled to rest, ice, elevate his left leg as much as possible. Take antibiotics as prescribed. Can take Tylenol as needed for pain. Follow-up with primary care physician for recheck in 2 days. Patient was given strict return to the emergency room guidelines. Return for any new or worsening symptoms. All questions were answered. Patient verbalized understanding and agrees with plan of care. 11/27/19 10:50 - Vital Signs Vital signs: Temp Pulse Resp BP Pulse Ox 98.5 F 91 16 126/67 H 98 11/27/19 08:26 11/27/19 08:07 11/27/19 08:07 11/27/19 08:07 11/27/19 08:07 - Laboratory Result Diagrams: 11/27/19 09:00 11/27/19 09:00 Laboratory results interpreted by me: 11/27/19 11/27/19 09:00 09:00 WBC 10.6 H RBC 4.02 L Hgb 12.7 L Hct 36.7 L ESR 62 H Sodium 134.2 L Chloride 96 L Carbon Dioxide 31 H Alkaline Phosphatase 147 H C-Reactive Protein 34.1 H - Diagnostic Test Radiology reviewed: Reports reviewed Discharge - Discharge Clinical Impression: Left leg cellulitis Condition: Stable Disposition: HOME, SELF-CARE Instructions: Cellulitis ([facility]) Additional Instructions: Rest ice elevate left leg. Antibiotics as prescribed. Tylenol and/or Motrin as needed for pain. Recheck with your primary care physician in 2 days. Return if increasing cellulitis beyond the goddard that were placed in your leg today in the next 2 days. Prescriptions: Cephalexin Monohydrate [Keflex 500 mg Capsule] 500 mg PO Q8H 10 Days #30 capsule Referrals: XAVIER CARMONA MD [Primary Care Provider] - Follow up as needed
[2019-11-27] MEDS ORDERED: CEFTRIAXONE INJ 1000 MG VIAL IV ONE (08:53)
[2019-11-27] MEDS ORDERED: KETOROLAC TROMETHAMINE INJ/PF 30 MG/1 ML SDV IV ONE (08:53)
--- NOTE | 2019-11-27 09:28 | RADIOLOGY REPORT (SQ) ---
EXAM DESCRIPTION: ANKLE LEFT COMPLETE IMAGES COMPLETED DATE/TIME: 11/27/2019 9:08 am REASON FOR STUDY: pain/swelling COMPARISON: None. NUMBER OF VIEWS: Three views. TECHNIQUE: AP, lateral, and oblique radiographic images acquired of the left ankle. LIMITATIONS: None. FINDINGS: MINERALIZATION: Osteopenia. BONES: The corticated osseous fragment that projects inferior to the medial malleolus could represent the sequela of a chronic injury. There is a distal fibular plate and screws endplate; the hardware is intact. There is no periprosthetic fracture. JOINTS: No joint effusion. The Achilles tendon silhouette is intact. SOFT TISSUES: Mild diffuse soft tissue swelling. OTHER: Enthesophytes at the calcaneal insertion of the plantar fascia. IMPRESSION: 1. Mild diffuse soft tissue swelling without an associated acute osseous abnormality of the ankle. 2. The corticated osseous fragment that projects inferior to the medial malleolus could represent th e sequela of a chronic injury. 3. ORIF hardware in the distal fibula. TECHNICAL DOCUMENTATION: JOB ID: [id number] 2010 [employer]- All Rights Reserved Reading location - IP/workstation name: [email or web address]
[2019-11-27 09:38] LABS: ALKALINE PHOSPHATASE 147 U/L (38-126); ANION GAP 7 (5-19); ASPARTATE AMINO TRANSFERASE 36 U/L (17-59); BILIRUBIN,TOTAL 0.8 mg/dL (0.2-1.3); BLOOD UREA NITROGEN 20 mg/dL (7-20); C-REACTIVE PROTEIN 34.1 mg/L (<10.0); CALCIUM 9.3 mg/dL (8.4-10.2); CARBON DIOXIDE 31 mmol/L (22-30); CHLORIDE 96 mmol/L (98-107); GLUCOSE 98 mg/dL (75-110); POTASSIUM 4.6 mmol/L (3.6-5.0); TOTAL PROTEIN 7.2 g/dL (6.3-8.2)
[2019-11-27 09:56] LABS: ERYTHROCYTE SEDIMENTATION RATE 62 mm/hr (0-20)
[2019-11-27 10:11] LABS: ABSOLUTE BASOPHILS # (AUTO) 0.1 10^3/uL (0.0-0.2); ABSOLUTE EOSINOPHILS # (AUTO) 0.1 10^3/uL (0.0-0.6); ABSOLUTE NEUT (AUTO) 7.4 10^3/uL (1.7-8.2); BASOPHILS % (AUTO) 0.8 % (0-2); EOSINOPHILS % (AUTO) 0.9 % (0-6); HEMATOCRIT 36.7 % (37.9-51.0); HEMOGLOBIN 12.7 g/dL (13.5-17.0); LYMPHOCYTES % (AUTO) 18.8 % (13-45); MEAN CORPUSCULAR HEMOGLOBIN 31.6 pg (27.0-33.4); MEAN CORPUSCULAR HGB CONC 34.7 g/dL (32.0-36.0); MEAN CORPUSCULAR VOLUME 91 fl (80-97); MONOCYTES % (AUTO) 9.2 % (3-13); PLATELET COUNT 297 10^3/uL (150-450); RED BLOOD COUNT 4.02 10^6/uL (4.35-5.55); RED CELL DISTRIBUTION WIDTH 12.8 % (11.5-14.0); SEGMENTED NEUTROPHILS % (AUTO) 70.3 % (42-78); TOTAL CELLS COUNTED % (AUTO) 100 %; WHITE BLOOD COUNT 10.6 10^3/uL (4.0-10.5)
[2019-11-27 11:28] VITALS: BP 115/73
== END 2019-11-27 11:42 | disposition home or self-care (01) ==
LOC: ER 08:01
DX: L03.116 Cellulitis of left lower limb (principal); S90.812A Abrasion, left foot, initial encounter; W45.8XXA Other foreign body or object entering through skin, initial encounter; I10 Essential (primary) hypertension; E78.00 Pure hypercholesterolemia, unspecified; M10.9 Gout, unspecified; Z79.899 Other long term (current) drug therapy
CPT/HCPCS: 99283; 96375; 96365; 36415; 87040; 83605; 85025; 85652; 86140; 80053; 73610; J1885; J0696

== ENCOUNTER 2019-11-28 12:54 | Emergency (ER) | payer MEDICARE, OTHER ==
[2019-11-28] MEDS ORDERED: HYDROCODONE/ACETAMINOPHEN 5-325 MG TABLET PO ONE (13:09)
--- NOTE | 2019-11-28 13:12 | ER Document Report ---
ED Medical Screen (RME) - General Chief Complaint: Ankle Pain Stated Complaint: ANKLE PAIN Time Seen by Provider: 11/28/19 13:02 Primary Care Provider: XAVIER CARMONA MD [Primary Care Provider] - Follow up as needed Mode of Arrival: Wheelchair Information source: Patient Notes: HPI; 74-year-old male past medical history significant for gout, hypertension, hyperlipidemia presents to the emergency room with worsening pain and erythema to left lower extremity. Patient was seen here yesterday for cellulitis was discharged home on Keflex which he states is been taking. Also taking ibuprofen which he states is not helping with his pain. Able to get follow-up appointment with his primary until next week. PE: Alert and oriented x3, moderate distress noted, left lower leg erythematous, warm, tender to palpation from the mid calf to the left ankle. Unable to fully assess foot while in triage. Lungs: Clear to auscultation without rales rhonchi wheezes, heart: Tachycardic without murmurs rubs or gallops. I have greeted and performed a rapid initial assessment of this patient. A comprehensive ED assessment and evaluation of the patient, analysis of test r esults and completion of the medical decision making process will be conducted by additional ED providers. I have specifically instructed the patient or family members with the patient to immediately return to any nursing staff should anything change in the patient's condition or with their chief complaint. TRAVEL OUTSIDE OF THE [place] IN LAST 30 DAYS: No - Related Data Allergies/Adverse Reactions: No Known Allergies Allergy (Verified 09/11/19 17:15) Past Medical History - Past Medical History Cardiac Medical History: Reports: Hx Hypercholesterolemia, Hx Hypertension Pulmonary Medical History: Reports: Hx Pneumonia Renal/ Medical History: Denies: Hx Peritoneal Dialysis GI Medical History: Musculoskeltal Medical History: Reports Hx Arthritis, Reports Hx Gout Traumatic Medical History: Reports: Hx Fractures - LT tib/fib, ORIF, 2006 Past Surgical History: Reports: Hx Cholecystectomy, Hx Herniorrhaphy - at age 65 years old RT inguinal, Hx Orthopedic Surgery - Right total hip replacement on 02/25/2015, wound debridement on 03/29/2015 - Immunizations Hx Diphtheria, Pertussis, Tetanus Vaccination: Yes Physical Exam - Vital signs Vitals: Temp Pulse Resp BP Pulse Ox 98.4 F 104 H 20 114/67 95 11/28/19 13:00 11/28/19 13:00 11/28/19 13:00 11/28/19 13:00 11/28/19 13:00 Course - Vital Signs Vital signs: Temp Pulse Resp BP Pulse Ox 98.4 F 104 H 20 114/67 95 11/28/19 13:00 11/28/19 13:00 11/28/19 13:00 11/28/19 13:00 11/28/19 13:00 Doctor's Discharge - Discharge Referrals: XAVIER CARMONA MD [Primary Care Provider] - Follow up as needed
[2019-11-28 13:31] LABS: ABSOLUTE BASOPHILS # (AUTO) 0.1 10^3/uL (0.0-0.2); ABSOLUTE EOSINOPHILS # (AUTO) 0.1 10^3/uL (0.0-0.6); ABSOLUTE LYMPHOCYTES (AUTO) 2.4 10^3/uL (0.5-4.7); ABSOLUTE MONOCYTES (AUTO) 1.2 10^3/uL (0.1-1.4); BASOPHILS % (AUTO) 0.9 % (0-2); EOSINOPHILS % (AUTO) 0.7 % (0-6); HEMATOCRIT 37.5 % (37.9-51.0); HEMOGLOBIN 12.7 g/dL (13.5-17.0); LYMPHOCYTES % (AUTO) 20.7 % (13-45); MEAN CORPUSCULAR HEMOGLOBIN 31.1 pg (27.0-33.4); MEAN CORPUSCULAR HGB CONC 33.9 g/dL (32.0-36.0); MEAN CORPUSCULAR VOLUME 92 fl (80-97); PLATELET COUNT 290 10^3/uL (150-450); RED BLOOD COUNT 4.09 10^6/uL (4.35-5.55); RED CELL DISTRIBUTION WIDTH 12.9 % (11.5-14.0); SEGMENTED NEUTROPHILS % (AUTO) 67.7 % (42-78); TOTAL CELLS COUNTED % (AUTO) 100 %; WHITE BLOOD COUNT 11.8 10^3/uL (4.0-10.5)
[2019-11-28] MEDS ORDERED: CEFEPIME 1 GM/D5W RTU 1 GM/50 ML RTUPB IV ONE (13:39)
[2019-11-28] MEDS ORDERED: VANCOMYCIN HCL INJ 1000 MG VIAL IV ONE (13:39)
--- NOTE | 2019-11-28 13:40 | ER Document Report ---
ED General - General Chief Complaint: Swelling of Lower Extremity Stated Complaint: ANKLE PAIN Time Seen by Provider: 11/28/19 13:02 Primary Care Provider: WILLIAMS FOSTER MD [NO LOCAL MD] - Follow up in 1 week XAVIER CARMONA MD [Primary Care Provider] - Follow up tomorrow Mode of Arrival: Wheelchair TRAVEL OUTSIDE OF THE [place] IN LAST 30 DAYS: No - HPI Notes: 74-year-old male presents to the emergency room with lower leg swelling and pain after being diagnosed with cellulitis yesterday and started on Keflex as well as having intermittent left testicular/ inguinal pain that started 3 days ago. Patient had a x-ray of his ankle which was negative yesterday for any osteomyelitis or fracture. He has had 4 doses of 500 mg Keflex. States that the redness has extended outside of the marked area and his pain is become worse, 3 out of 5. Patient is able to bear partial weight. Denies any other area of injury. Denies history of MRSA. Denies any trauma to the scrotum. Denies any dysuria, urinary retention, discharge his penis. Patient states he does not have a history of inguinal hernias. Denies fevers, chills, chest pain,palpitations, shortness of breath, dyspnea, nausea, vomiting, diarrhea, abdominal pain, hematuria,blurred vision, double vision, loss of vision, speech changes, LH, dizziness, syncope, headaches, wheezing, ST, URI, neck pain, weakness, bowel or bladder dysfunction, saddle anesthesia, numbness or tingling in bilateral upper or lower extremities equally, muscle paralysis, weakness in bilateral upper or lower extremities equally or rash. - Related Data Allergies/Adverse Reactions: No Known Allergies Allergy (Verified 09/11/19 17:15) Past Medical History - General Information source: Patient - Social History Smoking Status: Never Smoker Frequency of alcohol use: Occasional Drug Abuse: None Family History: Reviewed & Not Pertinent Patient has homicidal ideation: No - Past Medical History Cardiac Medical History: Reports: Hx Hypercholesterolemia, Hx Hypertension Pulmonary Medical History: Reports: Hx Pneumonia Renal/ Medical History: Denies: Hx Peritoneal Dialysis GI Medical History: Musculoskeletal Medical History: Reports Hx Arthritis, Reports Hx Gout Traumatic Medical History: Reports: Hx Fractures - LT tib/fib, ORIF, 2005 Past Surgical History: Reports: Hx Cholecystectomy, Hx Herniorrhaphy - at age 65 years old RT inguinal, Hx Orthopedic Surgery - Right total hip replacement on , wound debridement on 03/29/2015 - Immunizations Hx Diphtheria, Pertussis, Tetanus Vaccination: Yes Review of Systems - Review of Systems Constitutional: No symptoms reported EENT: No symptoms reported Cardiovascular: No symptoms reported Respiratory: No symptoms reported Gastrointestinal: No symptoms reported Genitourinary: See HPI Male Genitourinary: No symptoms reported Musculoskeletal: No symptoms reported Skin: See HPI Hematologic/Lymphatic: No symptoms reported Neurological/Psychological: No symptoms reported Physical Exam - Vital signs Vitals: Temp Pulse Resp BP Pulse Ox 98.4 F 104 H 20 114/67 95 11/28/19 13:00 11/28/19 13:00 11/28/19 13:00 11/28/19 13:11/28/19 13:00 - Notes Notes: MEDICATIONS: I agree with the patient medications as charted by the RN. ALLERGIES: I agree with the allergies as charted by the RN. PAST MEDICAL HISTORY/PAST SURGICAL HISTORY: Reviewed and agree as charted by RN. SOCIAL HISTORY: Reviewed and agree as charted by RN. FAMILY HISTORY: No significant familial comorbid conditions directly related to patient complaint EXAM: Reviewed vital signs as charted by RN. PHYSICAL EXAMINATION:reviewed vital signs by RN GENERAL: Well-appearing, well-nourished and in no acute distress. HEAD: Atraumatic, normocephalic. EYES: Pupils equal round and reactive to light, extraocular movements intact, sclera anicteric, conjunctiva are normal. ENT: Nares patent, oropharynx clear without exudates. Moist mucous membranes. NECK: Normal range of motion, supple without lymphadenopathy LUNGS: Breath sounds clear to auscultation bilaterally and equal. No wheezes rales or rhonchi. HEART: Regular rate and rhythm without murmurs ABDOMEN: Soft, nontender, nondistended abdomen. No guarding, no rebound. No masses appreciated. Musculoskeletal: Normal range of motion, no pitting or edema. No cyanosis. NEUROLOGICAL: Cranial nerves grossly intact. Normal speech, normal gait. Normal sensory, motor exams PSYCH: Normal mood, normal affect. SKIN: Warm, Dry, normal turgor, no rashes or lesions noted. Noted erythema induration warmth to touch from left lateral malleolus to mid calf on anterior aspect. no open wounds or drainage. Negative Homans sign bilaterally. squeeze test negative bilaterally. dtr +2 BLE. Limited APROM. distal pulses + 2 BLE equally. Full motor and sensory function of bilateral lower extremities. No vascular compromise. Peroneal nerve is intact with strong eversion and plantar flexion. Negative anterior drawer test. muscle strength 5/5 in BLE equally. Course - Re-evaluation Re-evalutation: 11/28/19 16:45 Afebrile vital stable no distress. Nurses notes reviewed. CBC shows a very slight elevation in 11.8 from 10.6, CMP negative for hepatic renal dysfunction. Electrolytes normal. Ultrasound of left lower extremity negative for DVT. Left testicular ultrasound shows left epididymitis and varicocele. Urinalysis was normal. Patient given IV vancomycin and cefepime for cellulitis of left lower extremity has become progressively worse since starting outpatient Keflex therapy yesterday which he is only received 4 doses at 500 mg orally. Patient is nondiabetic. Has not tried any heat or icing. Patient states the pain became worse and this is what brought him in, pain is been managed with morphine 3 mg IVP. Since patient is technically a return from being seen yesterday and his cellulitis is becoming worse, I considered admission. 1644-Dr. Carbajal is at bedside to examine patient and to speak with patient who is adamantly refus ing admission. Patient was thoroughly educated about the benefits of obtaining IV antibiotic therapy from being admitted but patient states he does not want to be admitted. Considering patient is not a diabetic, has only 1.2 elevation in his leukocytes, ultrasound was negative for DVT, he was given IV antibiotic therapy today and another antibiotic adjunct therapy will be prescribed outpatient for him to take, thorough outpatient discharge instructions of when to return such as worsening redness, redness extending out of the marked area by 1 cm, worsening pain, fevers etc. reasons to return to the emergency room immediately. Also discussed with patient that he needs to elevate his scrotum due to having epididymitis, the antibiotic prescribed will help treat his epididymitis. Advised to follow-up with urologist and primary care provider for further evaluation within the next 24 to 48 hours. After performing a Medical Screening Examination, I estimate there is LOW risk for OPEN FRACTURE, COMPARTMENT SYNDROME, TENDON RUPTURE, ACUTE NEUROVASCULAR INJURY, or RETAINED FOREIGN BODY, thus I consider the discharge disposition reasonable. Also, there is no evidence or peritonitis, sepsis, or toxicity. I have reevaluated this patient multiple times and no significant life threatening changes are noted. The patient and I have discussed the diagnosis and risks, and we agree with discharging home with close follow-up with the understanding that symptoms and presentations can change. We also discussed returning to the Emergency Department immediately if new or worsening symptoms occur. We have discussed the symptoms which are most concerning (e.g., changing or worsening pain, fever, numbness, weakness, cool or painful digits) that necessitate immediate return. - Vital Signs Vital signs: Temp Pulse Resp BP Pulse Ox 98.6 F 96 18 111/73 96 11/28/19 17:27 11/28/19 17:27 11/28/19 17:27 11/28/19 17:27 11/28/19 17:27 - Laboratory Result Diagrams: 11/28/19 13:16 11/28/19 13:16 Laboratory results interpreted by me: 11/28/19 11/28/19 13:16 13:16 WBC 11.8 H RBC 4.09 L Hgb 12.7 L Hct 37.5 L Sodium 134.6 L Carbon Dioxide 31 H BUN 24 H Alkaline Phosphatase 152 H Discharge - Discharge Clinical Impression: Left leg cellulitis, Left epididymitis Condition: Stable Disposition: HOME, SELF-CARE Instructions: Cellulitis ([facility]), Epididymitis ([facility]), MRSA Cellulitis ([facility]), Trimethoprim-Sulfa ([facility]), Warm Packs ([facility]) Additional Instructions: Your scrotal ultrasound did show that you have epididymitis on the left. We will be adding an antibiotic to your regimen, this antibiotic will also cover for epididymitis as well as for cellulitis. Please apply warm compresses to site 20 minutes on 20 minutes off, keep elevated. You need to take the antibiotics as prescribed. Do not stop even if the rash goes away until you have completed all the antibiotics. The area of redness was traced out here in the emergency department with a marking pen. You need to return to emergency department if the redness spreads outside of this area by more than 2 cm in any direction. You should also return if you develop fevers with temperature great er than 101, persistent vomiting, worsening pain, or have any other symptoms that are concerning to you. Return immediately for any new or worsening symptoms. Follow up with primary care provider, call tomorrow to make followup appointment. Prescriptions: Sulfamethoxazole/Trimethoprim [Bactrim Ds Tablet] 1 each PO BID #20 tablet Referrals: WILLIAMS FOSTER MD [NO LOCAL MD] - Follow up in 1 week XAVIER CARMONA MD [Primary Care Provider] - Follow up tomorrow
[2019-11-28 13:53] LABS: ALKALINE PHOSPHATASE 152 U/L (38-126); ANION GAP 6 (5-19); ASPARTATE AMINO TRANSFERASE 30 U/L (17-59); BILIRUBIN,TOTAL 0.7 mg/dL (0.2-1.3); BLOOD UREA NITROGEN 24 mg/dL (7-20); CALCIUM 9.4 mg/dL (8.4-10.2); CARBON DIOXIDE 31 mmol/L (22-30); CHLORIDE 98 mmol/L (98-107); GLUCOSE 105 mg/dL (75-110); POTASSIUM 4.1 mmol/L (3.6-5.0); TOTAL PROTEIN 7.1 g/dL (6.3-8.2)
--- NOTE | 2019-11-28 16:00 | RADIOLOGY REPORT (SQ) ---
EXAM DESCRIPTION: U/S SCROTUM W/DOPPLER IMAGES COMPLETED DATE/TIME: 11/28/2019 3:28 pm REASON FOR STUDY: L inguinal pain COMPARISON: None. TECHNIQUE: Static and realtime cordova scale imaging of the scrotum and testes. Selected color Doppler and spectral images recorded to document blood flow. LIMITATIONS: None. FINDINGS: RIGHT: TESTICLE: Normal size, 4.2 x 3.6 x 3 cm. Normal echotexture. Normal blood flow. No mass. EPIDIDYMIS: Normal. HYDROCELE OR VARICOCELE: No. HERNIA OR EXTRA-TESTICULAR MASS: No. OTHER: No other significant finding. LEFT: TESTICLE: Normal size, 4.5 x 2.7 x 2.1 cm. Normal echotexture. Normal blood flow. No mass. EPIDIDYMIS: Epididymal tail is prominent. HYDROCELE OR VARICOCELE: There appears to be a 3 mm varicocele. HERNIA OR EXTRA-TESTICULAR MASS: No. OTHER: No other significant finding. IMPRESSION: Cannot exclude epididymitis on the left. Small left varicocele. TECHNICAL DOCUMENTATION: JOB ID: [id number] [employer]- All Rights Reserved Reading location - IP/workstation name: [email or web address]
--- NOTE | 2019-11-28 16:20 | RADIOLOGY REPORT (SQ) ---
EXAM DESCRIPTION: VENOUS UNILATERAL LOWER IMAGES COMPLETED DATE/TIME: 11/28/2019 4:08 pm REASON FOR STUDY: pain left leg, swelling and erythema COMPARISON: 03/29/2019. TECHNIQUE: Dynamic and static cordova scale and color images acquired of the left leg venous system. Se lected spectral images acquired with additional compression and augmentation maneuvers. The contralat eral common femoral vein and saphenofemoral junction were also imaged. Images stored on PACS. LIMITATIONS: None. FINDINGS: COMMON FEMORAL: Normal phasicity, compression and augmentation. No visualized echogenic ma terial on cordova scale. No defects on color images. FEMORAL: Normal compression and augmentation. No visualized echogenic material on cordova scale. No defe cts on color images. POPLITEAL: Normal compression, augmentation. No visualized echogenic material on cordova scale. No defec ts on color images. CALF VESSELS: Normal compression, augmentation. No visualized echogenic material on cordova scale. No de fects on color images. GSV and SSV: Normal compression, augmentation. No visualized echogenic material on cordova scale. No def ects on color images. ANY DEEP VENOUS INSUFFICIENCY: Not evaluated. ANY EVIDENCE OF POPLITEAL CYST: No. OTHER: No other significant finding. CONTRALATERAL COMMON FEMORAL VEIN AND SAPHENOFEMORAL JUNCTION: Normal phasicity, compression and augmentation. No visualized echogenic material on cordova scale. No de fects on color images. IMPRESSION: NO EVIDENCE DVT OR SVT IN THE LEFT LEG. TECHNICAL DOCUMENTATION: JOB ID: [id number] 2010 [employer]- All Rights Reserved Reading location - IP/workstation name: [email or web address]
[2019-11-28] MEDS ORDERED: HYDROCODONE/ACETAMINOPHEN 5-325 MG (6 TAB/ER DISP) PO PRN (16:45)
[2019-11-28] MEDS ORDERED: MORPHINE SULFATE 10 MG/ML INJ IV ONE (16:46)
[2019-11-28 17:27] VITALS: BP 111/73
[2019-11-28 17:33] LABS: APPEARANCE,URINE CLEAR; BILIRUBIN,URINE NEGATIVE (NEGATIVE); COLOR,URINE YELLOW; GLUCOSE, URINE NEGATIVE (NEGATIVE); KETONES,URINE NEGATIVE (NEGATIVE); LEUKOCYTE ESTERASE,URINE NEGATIVE (NEGATIVE); NITRITE,URINE NEGATIVE (NEGATIVE); PROTEIN,URINE NEGATIVE (NEGATIVE); URINE SPECIFIC GRAVITY 1.013; UROBILINOGEN,URINE NEGATIVE mg/dL (<2.0)
== END 2019-11-28 17:27 | disposition home or self-care (01) ==
LOC: ER 12:54
DX: L03.116 Cellulitis of left lower limb (principal); N45.1 Epididymitis; M25.572 Pain in left ankle and joints of left foot; E78.00 Pure hypercholesterolemia, unspecified; I10 Essential (primary) hypertension; Z90.49 Acquired absence of other specified parts of digestive tract; Z96.641 Presence of right artificial hip joint
CPT/HCPCS: 99284; 96375; 96365; 96366; 96367; 36415; 87040; 83605; 85025; 80053; 81001; 93971; 76870; 93976; J2270; J3370; J0692; A9270 ×2